=== PATIENT | male | born 1995 | race Asian ===

== ENCOUNTER → 2017-01-01 | Outpatient (CLI) | payer OTHER ==
--- NOTE | 2017-01-01 19:45 | DIAGNOSTIC IMAGING REPORT ---
CERVICAL SPINE MRI HISTORY: POSTERIOR NECK PAIN, PAIN IN BOTH UPPER EXT TECHNIQUE: Multiplanar multisequence MRI of the cervical spine was performed without the use of contrast. COMPARISON STUDY: None. FINDINGS: Straightening of the cervical spine. Alignment is intact. Disc spaces are preserved. The visualized posterior fossa is unremarkable. Cervical spinal cord is normal in signal intensity. Presacral soft tissues and the C1-C2 interval are intact. C2-C3: No significant central canal or neural foraminal narrowing. C3-C4: No significant central canal or neural foraminal narrowing. C4-C5: No significant central canal or neural foraminal narrowing. C5-C6: Small left paracentral focal disc protrusion which abuts and slightly deforms the left anterior cord. This also results in mild left neural foraminal narrowing. C6-C7: No significant central canal or neural foraminal narrowing. C7-T1: No central canal narrowing. Moderate right-sided neural foraminal narrowing due to the uncovertebral hypertrophy. No left-sided neural foraminal narrowing IMPRESSION: 1. Small left paracentral focal disc protrusion at C5-C6 which abuts and slightly deforms the left anterior cord. This also results in mild left-sided neural foraminal narrowing. 2. Moderate right-sided neural foraminal narrowing at C7-T1 due to the uncovertebral hypertrophy. 3. No fracture or subluxation within the cervical spine. Electronically signed by: Toro Norton M.D. 01/01/2017 7:43 PM Dictated Date/Time: 01/01/2017 7:38 PM
== END | disposition home or self-care (01) ==
LOC: C.MRI 18:20
PROVIDERS: ATTEND Emergency Medicine
DX: M50.222 Other cervical disc displacement at C5-C6 level (principal); M54.2 Cervicalgia; R20.2 Paresthesia of skin; V89.2XXA Person injured in unspecified motor-vehicle accident, traffic, initial encounter

== ENCOUNTER 2017-05-24 01:37 | Emergency (ER) | payer OTHER ==
[~2017-05-24] VITALS: Ht 165.1 cm; Wt 65.1 kg
[2017-05-24 01:40] VITALS: TEMP 36.3; O2SAT 99; Ht 165.1 cm; Wt 65.1 kg
[2017-05-24 02:19] LABS: CALCIUM 9.2 mg/dl (8.5-10.1); CREATININE 1.09 mg/dl (0.60-1.40); POTASSIUM 3.1 mmol/L (3.5-5.1)
[2017-05-24 08:01] VITALS: BP 90/43; PULSE 115; O2SAT 97
--- NOTE | 2017-05-24 22:27 | EMERGENCY ROOM VISIT NOTE ---
ED Visit Note First contact with patient: 01:42 CHIEF COMPLAINT: Altered mental status from Alcohol overdose HISTORY OF PRESENT ILLNESS: This 21-year-old male patient presents to the emergency department via ambulance for evaluation of altered mental status, presumably from alcohol intoxication. [place]. He smelled of alcohol and now presents for evaluation. The patient does not report injury or trauma. He admits to drinking alcohol tonight. No drug use is reported. REVIEW OF SYSTEMS: Review of systems was somewhat limited secondary to patient' s presumed alcohol intoxication status. Review of systems was performed to the best of our ability and reperformed as the patient began to sober up. All other systems were reviewed and are negative. ALLERGIES: See EMR MEDICATIONS: See EMR PMH: No chronic medical disease SOCIAL HISTORY: Drinks alcohol PHYSICAL EXAM VITALS: Vitals are noted on the nurse's note and reviewed by myself. Vital signs stable. GENERAL: male, who is in no acute distress and resting comfortably. Patient is visibly altered and smells of alcohol. HEAD: Normocephalic atraumatic. EARS: External ear normal. External auditory canals clear, tympanic membranes pearly hendrix without erythema or effusion bilaterally. EYES: Pupils equal round and reactive to light and accommodation. Conjunctivae without injection, sclerae without icterus. Extraocular movements intact. NOSE: Patent, turbinates without inflammation or discharge. MOUTH: Mucous membranes moist. Tonsils are not enlarged. Pharynx without erythema, blood, vomitus, or exudate. Uvula midline. Airway patent. NECK: Supple without nuchal rigidity. No lymphadenopathy. Cervical spine is nontender. HEART: Regular rate and rhythm without murmurs gallops or rubs. LUNGS: Clear to auscultation bilaterally without wheezes, rales or rhonchi. No retractions or accessory muscle use. ABDOMEN: Positive normal bowel sounds x 4. Soft, nontender, without masses or organomegaly. No guarding or rebound tenderness. MUSCULOSKELETAL: No muscle atrophy, erythema, or edema noted. Gross motor function intact to all extremities. NEURO: Patient was alert to person but not place or time. They appear with altered mental status. SKIN: The skin was without rashes, erythema, edema, or bruising. No Tenting of the skin. EMERGENCY DEPARTMENT COURSE: Physical exam and history was performed. Nursing notes and EMR were reviewed. The patient appears to be altered on my examination. I suspect this is from an alcohol overdose. Conservative care measures and aspiration precautions were instituted. The patient was placed on awake overnight monitor and watched during the patient's stay. The patient was placed in a prone position. Blood work was obtained and was reviewed. The patient's blood alcohol level was 262. This appears to be the primary cause of the altered status. Patient was reevaluated multiple times throughout the course of their emergency department stay. Over time the patient did sober up and was able to talk, walk , and drink fluids without difficulty. The patient was felt stable for discharge home. The patient was given alcohol intoxication handouts. The patient was discharged home in stable condition with a sober ride. Differential diagnosis: Etiologies such as alcohol intoxication, metabolic, infection, hypoglycemia, electrolyte abnormalities, cardiac sources, intracerebral event, toxicologic, neurologic, as well as others were entertained. DIAGNOSIS: Acute alcohol intoxication Current/Historical Medications No Active Prescriptions or Reported Meds Allergies Coded Allergies: Cat Dander (Verified Allergy, Unknown, nasal congestion, 05/24/17) Vital Signs Date Time Temp Pulse Resp B/P (MAP) Pulse Ox O2 Delivery O2 Flow Rate FiO2 05/24/17 08:01 115 16 90/43 97 Room Air 05/24/17 07:00 101 14 99/37 96 Room Air 05/24/17 06:00 118 20 109/41 97 Room Air 05/24/17 05:51 112 05/24/17 05:00 106 16 118/50 100 Room Air 05/24/17 04:00 106 16 92/51 98 Room Air 05/24/17 03:07 109 16 119/46 98 Room Air 05/24/17 01:43 108 05/24/17 01:40 36.3 109 18 140/48 100 Room Air 05/24/17 01:40 99 Room Air 05/24/17 01:40 100 Room Air Laboratory Results 05/24/17 01:41 Test 05/24/17 01:41 Anion Gap 13.0 mmol/L (3-11) Est Creatinine Clear Calc Drug Dose 93.3 ml/min Estimated GFR () 111.9 Estimated GFR (Non- 96.5 BUN/Creatinine Ratio 8.4 (10-20) Calcium Level 9.2 mg/dl (8.5-10.1) Ethyl Alcohol mg/dL 262.0 mg/dl (0-3) Departure Information Impression Primary Impression: Alcohol intoxication Dispostion Home / Self-Care Condition GOOD Prescriptions No Active Prescriptions or Reported Meds Forms HOME CARE DOCUMENTATION FORM, IMPORTANT VISIT INFORMATION Patient Instructions My [facility], ED Alcohol Intoxication Additional Instructions You were seen and evaluated today on an emergency basis only. This is not a substitute for, or an effort to provide, complete comprehensive medical care. It is not possible to recognize and treat all injuries or illnesses in a single emergency department visit. Keep well-hydrated. Small sips of water over a long period of time are better tolerated than large amounts at once. Tylenol 1000 mg every 6 hours as needed for pain (Maximum 3000 mg Tylenol in 24 hr period). Follow up with family doctor as needed. You are welcome to return to the emergency department anytime with new, worsening, or concerning symptoms.
== END 2017-05-24 08:39 | disposition home or self-care (01) ==
LOC: EDBD 01:37 → C.EDB 01:38
DX: F10.929 Alcohol use, unspecified with intoxication, unspecified (principal); Y90.8 Blood alcohol level of 240 mg/100 ml or more; Z91.048 Other nonmedicinal substance allergy status